=== PATIENT | male | born 1995 | race Caucasian/White ===

== ENCOUNTER 2018-03-09 13:02 | Emergency (ER) | payer BC ==
[~2018-03-09] VITALS: Ht 182.9 cm; Wt 83.9 kg
[~2018-03-09 13:02] MED LIST: AMOXICILLIN 50500 MG PO; CITRATE OF MAG296 ML PO; IBUPROFEN 800800 M1 PO; NEXIUM40 MG PO; NORCO 5-325 TA1 EACH PO; ZOFRAN ODT4 MG PO
[2018-03-09 13:53] LABS: ABSOLUTE BASOPHILS 0.1 thou/uL (0.0-0.2); ABSOLUTE EOSINOPHILS 0.1 thou/uL (0.0-0.7); ABSOLUTE LYMPHOCYTES 2.3 thou/uL (0.8-5.3); ABSOLUTE MONOCYTES 0.6 thou/uL (0.0-1.2); ABSOLUTE NEUTROPHILS 5.1 thou/uL (1.6-8.1); BASOPHILS 0.8 %; EOSINOPHILS 1.4 %; HEMATOCRIT 47.3 % (42.0-52.0); HEMOGLOBIN 16.3 gm/dL (14.0-18.0); LYMPHOCYTES 28.6 %; MCH 29.9 pg (26.0-34.0); MCHC 34.5 g/dL (28.0-37.0); MCV 86.7 fL (80.0-100.0); MONOCYTES 7.5 %; MPV 8.6 fl. (7.2-11.1); NUCLEATED RBCS 0 /100WBC; PLATELET COUNT* 207 thou/uL (150-400); POLYS 61.7 %; RBC 5.45 mil/uL (4.50-6.00); RDW-CV 13.4 % (10.5-14.5); WBC 8.2 thou/uL (4.0-11.0)
[2018-03-09 14:15] LABS: CALCIUM 9.5 mg/dL (8.5-10.1); CREATININE 1.3 mg/dL (0.6-1.3); POTASSIUM 4.1 mmol/L (3.5-5.1)
[2018-03-09 14:20] LABS: ALBUMIN 4.2 g/dL (3.4-5.0); TOTAL BILIRUBIN 0.5 mg/dL (<0.1-1.0); TOTAL PROTEIN 7.6 g/dL (6.4-8.2)
[2018-03-09 14:52] LABS: URINE BILIRUBIN NEGATIVE (Negative); URINE BLOOD NEGATIVE (Negative); URINE CLARITY CLEAR; URINE COLOR YELLOW; URINE GLUCOSE-RANDOM NEGATIVE (Negative); URINE KETONES NEGATIVE (Negative); URINE LEUKOCYTES-REFLEX NEGATIVE (Negative); URINE NITRITE-REFLEX NEGATIVE (Negative); URINE PROTEIN NEGATIVE (Negative); URINE SPECIFIC GRAVITY 1.025 (1.005-1.030); URINE UROBILINOGEN 0.2 E.U./dl (0.2-1.0)
[2018-03-09] MEDS ORDERED: ONDANSETRON HCL4 M2 PO (15:37)
[2018-03-09 15:55] VITALS: BP 126/77
== END 2018-03-09 15:56 | disposition home or self-care (01) ==
LOC: M.ERS 13:02
PROVIDERS: Nurse Practitioner Family
DX: A08.4 Viral intestinal infection, unspecified (principal); I86.1 Scrotal varices; K21.9 Gastro-esophageal reflux disease without esophagitis; K50.90 Crohn's disease, unspecified, without complications